=== PATIENT | male | born 1965 | race Caucasian/White ===

== ENCOUNTER → 2016-03-03 | Outpatient (REF) | payer OTHER ==
[2016-03-03 11:49] LABS: MEAN CORPUSCULAR VOLUME 91.4 fl (80.0-96.0); RED CELL DISTRIBUTION WIDTH 12.4 % (11.5-14.5); WHITE BLOOD COUNT 4.2 K/mm3 (4.0-10.0)
[2016-03-03 11:57] LABS: ALBUMIN 4.1 GM/DL (3.2-5.2); ALBUMIN/GLOBULIN RATIO 1.28 (1.00-1.93); ALKALINE PHOSPHATASE 41 U/L (45-117); ALT/SGPT 35 U/L (12-78); ANION GAP 6 MEQ/L (8-16); AST/SGOT 29 U/L (15-37); BILIRUBIN,TOTAL 0.6 MG/DL (0.2-1.0); BLOOD UREA NITROGEN 20 MG/DL (7-18); CALCIUM LEVEL 9.3 MG/DL (8.5-10.1); CARBON DIOXIDE LEVEL 30 MEQ/L (21-32); CHLORIDE LEVEL 105 MEQ/L (98-107); CHOLESTEROL LEVEL 165 MG/DL (<200); CREATININE FOR GFR 1.13 MG/DL (0.70-1.30); GLOMERULAR FILTRATION RATE > 60.0 (>56); GLUCOSE, FASTING 93 MG/DL (70-105); POTASSIUM SERUM 4.5 MEQ/L (3.5-5.1); SODIUM LEVEL 141 MEQ/L (136-145); TOTAL PROTEIN 7.3 GM/DL (6.4-8.2); TRIGLYCERIDES LEVEL 198 MG/DL (<150)
== END ==
LOC: M SFHCLERA 08:03
PROVIDERS: ATTEND Family Medicine
DX: I10 Essential (primary) hypertension (principal); E78.1 Pure hyperglyceridemia; E55.9 Vitamin D deficiency, unspecified

== ENCOUNTER → 2016-04-15 | Outpatient (CLI) | payer BC, OTHER ==
--- NOTE | 2016-04-15 12:24 | REP ---
LUMBAR SPINE, FIVE VIEWS: HISTORY: Back pain. There is no acute fracture. The L2-3 through L5-S1 intervertebral discs are decreased in height consistent with disc degeneration. Osteophytes are present on L3-5. There is narrowing of the L4-5 and L5-S1 facet joints. There are 9 mm of grade 1 spondylolisthesis of L5 on S1. There are possible L5 pars defects. IMPRESSION: Degenerative change as described above. CT of the lumbar spine may be helpful for further evaluation. Signed by Cliff Javier MD 04/15/2016 12:25 P
== END ==
LOC: M LRY 11:23
PROVIDERS: ATTEND Family Medicine
DX: M54.5 Low back pain (principal)

== ENCOUNTER → 2016-04-24 | Outpatient (REF) | payer BC, OTHER | LOC: M LABDRAW1 15:30 | PROVIDERS: ATTEND Physician Assistant Medical | DX: E29.1 Testicular hypofunction (principal) | CPT/HCPCS: 36415; 84403; 85014; 85018; G0103 ==

== ENCOUNTER → 2016-05-07 | Outpatient (CLI) | payer BC, OTHER ==
--- NOTE | 2016-05-08 06:56 | REP ---
MRI LUMBAR SPINE WITHOUT CONTRAST: 05/07/2016. Clinical history: Low back pain. Symptoms for 2 months. Technique: Sagittal T1, T2 and STIR images with axial T1 and T2 sequences. Comparison: X-ray 04/15/2016. Findings: The sagittal images show a grade 1 anterolisthesis of L5 on S1 by about 8 mm as on the radiographs. I suspect bilateral pars defects at L5. MR is less sensitive than CT for this determination. The disc space is narrowed at L5-S1 with discogenic endplate changes, loss of disc water signal and with loss of disc water signal at the other levels from L4-5 upward, least at L1-2. Vertebral body heights are maintained at all levels except for minor posterior wedging of L5, not acute. T12 and visible portion of T11 levels were intact. T11-12, T12-L1 and L1-2 levels show minimal disc bulge without spinal or foraminal stenosis. At L2-3, there is a broad-based disc bulge flattening the ventral thecal sac with crowded nerve roots in the canal at this level. Ligamentum flavum and facet hypertrophic change noted. Foramina are marginally adequate without nerve root compression. At L3-4, there is a broad-based disc bulging indenting the ventral thecal sac. The cross-sectional area of the canal was adequate. There is some ligamentum flavum and mild hypertrophic facet change. Foramina are notable for some loss of perineural fat but no nerve root compression. At L4-L5, there is a mild broad-based disc bulge flattening the ventral thecal sac. Cross-sectional area of the canal was adequate. No displacement of the L5 nerve roots. Some hypertrophic facet changes are noted. Foramina show some loss of perineural fat but no nerve root compression. At L5-S1, there is broad-based disc bulge flattening the ventral thecal sac, but neither abutting or displacing the S1 nerve roots. There is foraminal encroachment and nerve root compression bilaterally of the L5 roots, left greater than right. Cross-sectional area of the central canal adequate with the anterolisthesis of L5 on S1 but the nerve roots are compressed as described. Impression: 1. Bilateral L5 pars defects suspected with grade 1 anterolisthesis of L5 and S1 by about 8 mm and with bilateral foraminal encroachment and nerve root compression of the L5 roots, left greater than right. No central canal stenosis. 2. Disc bulges at L2-3 through L4-5 without significant spinal or foraminal stenosis. There is loss of perineural fat but no nerve root compression at these levels. 3. The L1-2 and two levels above it show minimal disc bulge without spinal or foraminal stenosis. Signed by Per Ram MD 05/08/2016 11:51 A
== END ==
LOC: M RAD 17:42
PROVIDERS: ATTEND Orthopaedic Surgery
DX: M51.26 Other intervertebral disc displacement, lumbar region (principal); M51.27 Other intervertebral disc displacement, lumbosacral region

== ENCOUNTER → 2016-10-12 | Outpatient (REF) | payer OTHER ==
[~2016-10-12] MED LIST: ASPI1TAB PO; CENTTAB47 PO; FISH1000 PO; LISI-538 PO; METO1TAB32 PO; TRAZ-136 PO; VITA200016 PO
== END ==
LOC: M LABDRAW1 16:13
PROVIDERS: ATTEND Internal Medicine Endocrinology, Diabetes & Metabolism
DX: E29.1 Testicular hypofunction (principal)

== ENCOUNTER 2016-10-20 11:42 | Outpatient (CLI) | payer BC, OTHER ==
[~2016-10-20] VITALS: Ht 175.3 cm; Wt 106.6 kg
[2016-10-20] MEDS ORDERED: NS 1,000 ML IV ONE (12:00)
--- NOTE | 2016-10-20 13:51 | ROOR ---
Patient Name: Maurizio Tripathi Procedure Date: 10/20/2016 1:33 PM Date of : 1965 Age: 50 Room: [facility] Gender: Male Note Status: Finalized Procedure: Colonoscopy Indications: Screening for colorectal malignant neoplasm Providers: Karlos PAULINO MD Referring MD: Jen BROOKS MD Requesting Provider: Medicines: Monitored Anesthesia Care Complications: No immediate complications. Procedure: Pre-Anesthesia Assessment: - The heart rate, respiratory rate, oxygen saturations, blood pressure, adequacy of pulmonary ventilation, and response to care were monitored throughout the procedure. The Colonoscope was introduced through the anus and advanced to the cecum, identified by appendiceal orifice and ileocecal valve. The colonoscopy was performed without difficulty. The patient tolerated the procedure well. The quality of the bowel preparation was good. Findings: The perianal exam findings include skin tags. A 6 mm polyp was found in the hepatic flexure. The polyp was semi-sessile. The polyp was removed with a cold snare. Resection and retrieval were complete. Small Internal Hemorrhoids. The exam was otherwise without abnormality on direct and retroflexion views. Impression: - Perianal skin tags found on perianal exam. - One 6 mm polyp at the hepatic flexure, removed with a cold snare. Resected and retrieved. - Small Internal Hemorrhoids. - The colon examination was otherwise normal on direct and retroflexion views. Recommendation: - Repeat colonoscopy in 3 years for surveillance. Karlos Paulino MD Karlos PAULINO MD 10/20/2016 1:51:00 PM This report has been signed electronically. Number of Addenda: 0 Note Initiated On: 10/20/2016 1:33 PM Estimated Blood Loss: Estimated blood loss: none.
[2016-10-20 14:10] VITALS: BP 143/91
== END 2016-10-20 14:20 | disposition home or self-care (01) ==
LOC: M OPP 11:42
PROVIDERS: ATTEND Internal Medicine Gastroenterology
DX: Z12.11 Encounter for screening for malignant neoplasm of colon (principal); K64.4 Residual hemorrhoidal skin tags; K63.5 Polyp of colon; K64.8 Other hemorrhoids; I10 Essential (primary) hypertension; M10.9 Gout, unspecified; F41.9 Anxiety disorder, unspecified; G47.30 Sleep apnea, unspecified; E78.5 Hyperlipidemia, unspecified; Z79.899 Other long term (current) drug therapy; Z79.82 Long term (current) use of aspirin

== ENCOUNTER → 2017-04-05 | Outpatient (REF) | payer OTHER ==
[2017-04-05 15:43] LABS: BASO % 0.7 % (0.0-1.0); EOS # 0.1 10^3/uL (0.0-0.50); EOS % 1.6 % (0.0-3.0); HEMOGLOBIN 14.3 g/dl (14.0-18.0); IMMATURE GRANULOCYTE % 0.5 % (0-0); LYMPH # 2.3 10^3/uL (1.5-4.5); MEAN CORPUSCULAR HEMOGLOBIN 31.2 pg (27.0-33.0); MEAN CORPUSCULAR HGB CONC 34.9 g/dl (32.0-36.5); MEAN CORPUSCULAR VOLUME 89.5 fl (80.0-96.0); MONO # 0.4 10^3/uL (0.0-0.8); MONO % 7.4 % (0.0-5.0); NEUTROPHILS # 2.7 10^3/uL (1.8-7.7); NEUTROPHILS % 48.8 % (36.0-66.0); PLATELET COUNT, AUTOMATED 179 10^3/uL (150-450); RED BLOOD COUNT 4.58 10^6/uL (4.30-6.10); RED CELL DISTRIBUTION WIDTH 12.2 % (11.5-14.5); WHITE BLOOD COUNT 5.5 10^3/uL (4.0-10.0)
[2017-04-05 15:50] LABS: PSA SCREENING 0.52 NG/ML (< 4.0)
== END ==
LOC: M LABDRAW1 15:27
DX: E29.1 Testicular hypofunction (principal)

== ENCOUNTER → 2017-10-01 | Outpatient (REF) | payer OTHER ==
[2017-10-01 16:17] LABS: HEMATOCRIT 42.2 % (42.0-52.0); HEMOGLOBIN 15.3 g/dl (13.5-17.5)
[2017-10-01 16:37] LABS: TESTOSTERONE 756 NG/DL (241-827)
== END ==
LOC: M LABDRAW1 15:57
DX: E29.1 Testicular hypofunction (principal)

== ENCOUNTER → 2018-04-27 | Outpatient (REF) | payer MEDICARE, OTHER ==
[~2018-04-27] MED LIST changes: -ASPI1TAB PO; +ASPI81TA26 PO; -TRAZ-136 PO; +TRAZ-163 PO
[2018-04-27 15:57] LABS: HEMATOCRIT 44.1 % (42.0-52.0); HEMOGLOBIN 15.8 g/dl (13.5-17.5)
== END ==
LOC: M LABDRAW1 15:38
PROVIDERS: ATTEND Nurse Practitioner Family
DX: E29.1 Testicular hypofunction (principal)
CPT/HCPCS: 36415; 84403; 85014; 85018; G0103

== ENCOUNTER → 2018-06-30 | Outpatient (REF) | payer MEDICARE, OTHER ==
[2018-06-30 16:59] LABS: BASO # 0.1 10^3/uL (0.0-0.2); EOS # 0.1 10^3/uL (0.0-0.50); EOS % 1.8 % (0.0-3.0); HEMATOCRIT 39.9 % (42.0-52.0); LYMPH # 1.6 10^3/uL (1.5-4.5); LYMPH % 30.5 % (24.0-44.0); MEAN CORPUSCULAR HEMOGLOBIN 29.5 pg (27.0-33.0); MEAN CORPUSCULAR HGB CONC 32.6 g/dl (32.0-36.5); MEAN CORPUSCULAR VOLUME 90.5 fl (80.0-96.0); MONO # 0.3 10^3/uL (0.0-0.8); MONO % 6.6 % (0.0-5.0); NEUTROPHILS # 3.1 10^3/uL (1.8-7.7); NEUTROPHILS % 59.7 % (36.0-66.0); PLATELET COUNT, AUTOMATED 248 10^3/uL (150-450); RED BLOOD COUNT 4.41 10^6/uL (4.30-6.10); WHITE BLOOD COUNT 5.1 10^3/uL (4.0-10.0)
== END ==
LOC: M SFHCLERA 10:31
PROVIDERS: ATTEND Family Medicine
DX: R53.83 Other fatigue (principal)
CPT/HCPCS: 85025; G0463

== ENCOUNTER → 2018-11-11 | Outpatient (REF) | payer MEDICARE, OTHER ==
[2018-11-11 12:17] LABS: HEMOGLOBIN 14.4 g/dl (13.5-17.5)
== END ==
LOC: M LABDRAW1 10:28
PROVIDERS: ATTEND Nurse Practitioner Family
DX: E29.1 Testicular hypofunction (principal)

== ENCOUNTER → 2019-01-20 | Outpatient (REF) | payer MEDICARE, OTHER ==
[2019-01-20 12:40] LABS: HEMATOCRIT 49.1 % (42.0-52.0); HEMOGLOBIN 16.6 g/dl (13.5-17.5)
== END ==
LOC: M LABDRAW1 11:40
PROVIDERS: ATTEND Nurse Practitioner Family
DX: E29.1 Testicular hypofunction (principal)

== ENCOUNTER → 2019-02-17 | Outpatient (CLI) | payer MEDICARE, BC, OTHER ==
[~2019-02-17] MED LIST changes: +GASTROGRAFIN SOLUTION 30ML (Q9963) As Ordered ONE; +ISOVUE-370 76% 100ML VIAL (Q9967) As Ordered ONE
--- NOTE | 2019-02-17 19:53 | REP ---
HISTORY: History of ventral hernia. Having abdominal pain. COMPARISON: None. CONTRAST: 100 mL [id number] The lung bases are clear. The liver, gallbladder, spleen, pancreas, adrenal glands and kidneys are within normal limits. The abdominal aorta and periaortic regions are within normal limits. The bowel loops and their mesenteries are within normal limits. There is no free fluid or free air. There is no intraabdominal mass or adenopathy. There is a ventral hernia through which only mesentery protrudes and the aperture of which measures approximately 3.3 cm. This is supraumbilical in location. Bone window technique throughout the examination shows chronic changes seen involving the imaged spine. IMPRESSION: Small ventral hernia as described above. Electronically Signed by He Marina DO 02/17/2019 07:53 P
== END ==
LOC: M RAD 15:56
PROVIDERS: ATTEND Family Medicine
DX: K43.9 Ventral hernia without obstruction or gangrene (principal)
CPT/HCPCS: 74160; Q9963; Q9967

== ENCOUNTER → 2019-04-27 | Outpatient (REF) | payer MEDICARE, OTHER ==
[~2019-04-27] MED LIST changes: +ALLO100T PO; +CHLO125TA PO; -GASTROGRAFIN SOLUTION 30ML (Q9963) As Ordered ONE; -ISOVUE-370 76% 100ML VIAL (Q9967) As Ordered ONE; +KP F1200 PO; +NO ITAB PO; -TRAZ-163 PO; +TRAZ-257 PO; +VITA200028 PO
[2019-04-27 12:51] LABS: BLOOD UREA NITROGEN 17 MG/DL (7-18); CALCIUM LEVEL 9.1 MG/DL (8.5-10.1); CARBON DIOXIDE LEVEL 30 MEQ/L (21-32); CHLORIDE LEVEL 105 MEQ/L (98-107); CREATININE FOR GFR 0.86 MG/DL (0.70-1.30); GLOMERULAR FILTRATION RATE > 60.0 (>56); GLUCOSE, FASTING 92 MG/DL (70-100); POTASSIUM SERUM 4.1 MEQ/L (3.5-5.1); SODIUM LEVEL 139 MEQ/L (136-145)
== END ==
LOC: M SFHCLERA 09:41
PROVIDERS: ATTEND Family Medicine
DX: I10 Essential (primary) hypertension (principal)
CPT/HCPCS: 80048; G0463

== ENCOUNTER 2019-05-05 07:49 | Day surgery (SDC) | payer MEDICARE, BC, OTHER ==
[~2019-05-05] VITALS: Ht 175.3 cm; Wt 111.1 kg
[~2019-05-05 07:49] MED LIST changes: -CHLO125TA PO; +LR 1,000 ML IV ONE; +ceFAZolin SOD 2 GM in IV 1 EA IV ONE
[2019-05-05 08:27] LABS: HEMOGLOBIN 16.3 g/dl (13.5-17.5); MEAN CORPUSCULAR HEMOGLOBIN 31.2 pg (27.0-33.0); MEAN CORPUSCULAR HGB CONC 34.7 g/dl (32.0-36.5); MEAN CORPUSCULAR VOLUME 89.9 fl (80.0-96.0); PLATELET COUNT, AUTOMATED 189 10^3/uL (150-450); RED BLOOD COUNT 5.23 10^6/uL (4.30-6.10); WHITE BLOOD COUNT 5.6 10^3/uL (4.0-10.0)
[2019-05-05] MEDS ORDERED: CHLO125TA PO (08:27)
[2019-05-05] MEDS ORDERED: BUPIVACAINE/EPIN 0.25% 30 ML VIAL As Ordered ONE (10:28)
[2019-05-05] MEDS ORDERED: propofoL 200 MG/20 ML VIAL As Ordered ONE ×2 (11:09→11:23)
[2019-05-05] MEDS ORDERED: LIDOCAINE 2% INJ 100 MG/5 ML SDV (FOR ANES.) As Ordered ONE (11:09)
[2019-05-05] MEDS ORDERED: fentaNYL 250 MCG/5 ML INJECTION (J3010) As Ordered ONE (11:09)
[2019-05-05] MEDS ORDERED: ROCURONIUM BROMIDE 50 MG/5 ML VIAL As Ordered ONE (11:09)
[2019-05-05] MEDS ORDERED: METOCLOPRAMIDE INJ 10MG/2ML VIAL (J2765) As Ordered ONE (11:09)
[2019-05-05] MEDS ORDERED: SUGAMMADEX SODIUM 500 MG/5 ML VIAL (BRIDION) As Ordered ONE (11:09)
[2019-05-05] MEDS ORDERED: dexameTHASONE 4 MG/ML 1ML VIAL (J1100) As Ordered ONE (11:09)
[2019-05-05] MEDS ORDERED: MIDAZOLAM INJ 2 MG/2 ML VIAL (J2250) As Ordered ONE (11:09)
[2019-05-05] MEDS ORDERED: KETOROLAC 60 MG/2 ML VIAL (J1885) As Ordered ONE (11:23)
[2019-05-05] MEDS ORDERED: LABETALOL HCL 100 MG/20 ML VIAL As Ordered ONE (11:26)
[2019-05-05] MEDS ORDERED: ACETAMINOPHEN 1000MG 100ML IV BTL (OFIRMEV) (J0131 PER 10MG) As Ordered ONE (11:29)
[2019-05-05] MEDS ORDERED: oxyCODONE 5MG TAB As Ordered ONE (12:09)
[2019-05-05] MEDS ORDERED: fentaNYL 100 MCG/2 ML INJECTION (J3010) As Ordered ONE (12:09)
[2019-05-05] MEDS: oxyCODONE 5MG TAB PO PRN ×2 (12:10→12:40)
[2019-05-05] MEDS: fentaNYL 100 MCG/2 ML INJECTION (J3010) IV PRN ×4 (12:10→12:25)
[2019-05-05 12:45] VITALS: BP 137/81
[2019-05-05] MEDS ORDERED: NORCO, ANEXSIA 5/325MG TABLET (HYDROcodone/ACETAMINOPHEN) PO PRN (12:45)
[2019-05-05] MEDS ORDERED: ONDANSETRON 4MG/2ML VIAL (J2405) IV PRN (12:45)
[2019-05-05] MEDS ORDERED: LR 1,000 ML IV SCH (12:45)
--- NOTE | 2019-05-05 15:09 | ECGEPIP ---
[facility] Test Date: 2019-05-05 Pat Name: NORBERTO MONAHAN Department: Room: - Gender: Male Form Grader: ERASMO : 1965 Requested By: LESLYE Broderick Order Number: [id number] Reading MD: Karlos Mitchell Measurements Intervals [place] Rate: 65 P: 59 [place]: 207 QRS: 72 QRSD: 106 T: 28 QT: 407 QTc: 424 Interpretive Statements SINUS RHYTHM Comparison tracing not on file Electronically Signed on 05-05-2019 15:08:57 EST by Karlos Mitchell
--- NOTE | 2019-05-08 23:10 | RO ---
DATE OF PROCEDURE: 05/05/2019 PREOPERATIVE DIAGNOSIS: Recurrent incarcerated umbilical hernia. POSTOPERATIVE DIAGNOSIS: Recurrent incarcerated umbilical hernia. PROCEDURE: Robotic repair of recurrent incarcerated umbilical hernia. SURGEON: Dr. Johny Arreola ARMATURE CONNECTOR: Beryl Willoughby ANESTHESIA: General. ESTIMATED BLOOD LOSS: 5 mL. COMPLICATIONS: None. INDICATIONS FOR PROCEDURE: The patient is a 53-year-old male who presents with recurrent umbilical hernia after having an open repair over 10 years ago, presents with significant pains preventing him from doing any significant lifting. Recommendation was to proceed with robotic repair. Risks and benefits not limited to but including bleeding, infection, hernia recurrence, hernia formation, damage to surrounding structures, and need for further surgery were discussed in detail with the patient. Informed consent was obtained and procedure was planned. DESCRIPTION OF PROCEDURE: The patient was brought back to operating room seven, after sufficient sedation, the abdomen was sterilely prepped and draped. Next, a time-out was done to confirm proper patient and proper procedure. Following that, an 8 mm incision made in left upper quadrant, Veress needle inserted and the abdomen was insufflated to 15 mmHg. Veress needle was then removed and an 8 mm Optiview robotic port was used to gain access to the abdomen. Once the abdomen was entered, another 8 mm robotic port was placed just left of midline in the epigastric and another one in the right upper quadrant. Robot was docked to the ports. Next, from the inside, a horizontal incision was made through the falciform ligament in the midline. The preperitoneal space was dissected free inferiorly surrounding the umbilicus, and the entire hernia sac was carefully dissected free and completely reduced. Once that was completed, the fascia was closed with an #0 Stratafix suture. A 5 cm round ProGrip mesh was then placed over top of that, and the peritoneum was closed over top of it using a #2-0 V-Loc, thus ending the procedure. Ports were then removed, abdomen was desufflated. Skin incisions were closed with #4-0 Vicryl subcuticular sutures. The abdomen was cleaned and dried. Steri-Strips, 4x4, and tape were applied thus ending procedure.
== END 2019-05-05 13:39 | disposition home or self-care (01) ==
LOC: M SDC 07:49
PROVIDERS: ATTEND Surgery
DX: K42.0 Umbilical hernia with obstruction, without gangrene (principal); I10 Essential (primary) hypertension; E78.5 Hyperlipidemia, unspecified; M10.9 Gout, unspecified; F41.9 Anxiety disorder, unspecified; F32.9 Major depressive disorder, single episode, unspecified; F12.10 Cannabis abuse, uncomplicated; G47.30 Sleep apnea, unspecified; Z79.899 Other long term (current) drug therapy
CPT/HCPCS: 36415; 49653; 85027; 93005; C1781; J0131; J0690; J1100; J1885; J2250; J2765; J3010

== ENCOUNTER → 2019-07-11 | Outpatient (CLI) | payer MEDICARE, BC, OTHER ==
[~2019-07-11] MED LIST changes: +CHLO125TA PO; -LISI-538 PO; +LISI20TA33 PO; -LR 1,000 ML IV ONE; -ceFAZolin SOD 2 GM in IV 1 EA IV ONE
[2019-07-11 17:11] LABS: HEMATOCRIT 43.3 % (42.0-52.0); HEMOGLOBIN 15.4 g/dl (13.5-17.5)
== END ==
LOC: M LRY 13:00
PROVIDERS: ATTEND Nurse Practitioner Family
DX: E29.1 Testicular hypofunction (principal)
CPT/HCPCS: 36415; 84403; 85014; 85018; G0103

== ENCOUNTER → 2020-02-15 | Outpatient (CLI) | payer MEDICARE, BC, OTHER ==
[~2020-02-15] MED LIST changes: +LISI-538 PO; -LISI20TA33 PO
[2020-02-15 15:53] LABS: HEMATOCRIT 48.7 % (42.0-52.0); HEMOGLOBIN 16.8 g/dl (13.5-17.5)
== END ==
LOC: M PLALAB 12:28
PROVIDERS: ATTEND Nurse Practitioner Family
DX: E29.1 Testicular hypofunction (principal)

== ENCOUNTER → 2020-04-17 | Outpatient (CLI) | payer MEDICARE, BC, OTHER ==
[~2020-04-17] MED LIST changes: -LISI-538 PO; +LISI20TA33 PO
== END ==
LOC: M PLALAB 09:51
PROVIDERS: ATTEND Nurse Practitioner Family
DX: E29.1 Testicular hypofunction (principal)

== ENCOUNTER → 2020-05-07 | Outpatient (REF) | payer MEDICARE, OTHER ==
[2020-05-07 14:09] LABS: BASO # 0.1 10^3/uL (0.0-0.2); BASO % 1.2 % (0.0-1.0); EOS # 0.1 10^3/uL (0.0-0.5); EOS % 2.3 % (0.0-3.0); HEMATOCRIT 45.2 % (42.0-52.0); HEMOGLOBIN 15.5 g/dl (13.5-17.5); LYMPH # 2.1 10^3/uL (1.5-5.0); MEAN CORPUSCULAR HEMOGLOBIN 30.8 pg (27.0-33.0); MEAN CORPUSCULAR HGB CONC 34.3 g/dl (32.0-36.5); MEAN CORPUSCULAR VOLUME 89.9 fl (80.0-96.0); MONO # 0.4 10^3/uL (0.0-0.8); MONO % 8.1 % (2.0-8.0); NEUTROPHILS # 2.2 10^3/uL (1.5-8.5); PLATELET COUNT, AUTOMATED 183 10^3/uL (150-450); RED BLOOD COUNT 5.03 10^6/uL (4.30-6.10); WHITE BLOOD COUNT 4.8 10^3/uL (4.0-10.0)
[2020-05-07 14:25] LABS: ALBUMIN 4.1 GM/DL (3.2-5.2); ALT/SGPT 72 U/L (12-78); BILIRUBIN,TOTAL 0.8 MG/DL (0.2-1.0); BLOOD UREA NITROGEN 19 MG/DL (7-18); CALCIUM LEVEL 9.6 MG/DL (8.5-10.1); CARBON DIOXIDE LEVEL 32 MEQ/L (21-32); CHLORIDE LEVEL 99 MEQ/L (98-107); CHOLESTEROL LEVEL 191 MG/DL (<200); CHOLESTEROL RISK RATIO 5.026 (<5); GLOMERULAR FILTRATION RATE > 60.0 (>56); GLUCOSE, FASTING 97 MG/DL (70-100); HDL CHOLESTEROL 38 MG/DL (>40); NON-HDL-C 153 MG/DL; POTASSIUM SERUM 3.6 MEQ/L (3.5-5.1); SODIUM LEVEL 137 MEQ/L (136-145); TOTAL PROTEIN 7.6 GM/DL (6.4-8.2); TRIGLYCERIDES LEVEL 529 MG/DL (<150)
== END ==
LOC: M SFHCLERA 10:01
PROVIDERS: ATTEND Family Medicine
DX: Z00.00 Encounter for general adult medical examination without abnormal findings (principal); E78.00 Pure hypercholesterolemia, unspecified

== ENCOUNTER → 2020-08-20 | Outpatient (CLI) | payer MEDICARE, OTHER ==
[2020-08-20 17:27] LABS: HEMATOCRIT 44.3 % (42.0-52.0); HEMOGLOBIN 15.4 g/dl (13.5-17.5)
== END ==
LOC: M PLALAB 14:01
PROVIDERS: ATTEND Nurse Practitioner Family
DX: E29.1 Testicular hypofunction (principal)
CPT/HCPCS: 36415; 84403; 85014; 85018; G0103